=== PATIENT | female | born 1960 | race Caucasian/White ===

== ENCOUNTER 2016-07-23 17:36 | Emergency (ER) | payer BC ==
[2016-07-23 17:43] VITALS: BP 143/93; PULSE 80; RESP 20; TEMP 98.5
--- NOTE | 2016-07-23 17:51 | ED ---
Fall HPI - General Chief Complaint: Fall Stated Complaint: L wrist injury Time Seen by Provider: 07/23/16 17:42 Source: patient, RN notes reviewed Mode of arrival: ambulatory Limitations: no limitations - History of Present Illness Initial Comments: 56-year-old female presents emergency Department with chief complaint of left wrist injury, left knee injury. Patient states that she was walking out of the [place] states that she tripped because of her foot flops and fell forward. She denies any head injury no LOC. Patient has an abrasion to her left knee but states that she has no pain with ambulation. Patient primary complaint of left hand and left forearm pain. Patient states she says no prior fractures. Denies any paresthesias. - Related Data Home Medications Medication Instructions Recorded Confirmed Tiotropium 18 Mcg/Puff [Spiriva] 1 cap INHALATION DAILY 04/26/15 04/27/15 Allergies Allergy/AdvReac Type Severity Reaction Status Date / Time codeine phosphate Allergy Severe Dyspnea-Couldn't Verified 07/23/16 17:41 [From Tylenol-Codeine #3] move-had to call 911 Sulfbraydon (Sulfonamide Allergy Severe pt states Verified 07/23/16 17:41 Antibiotics) felt like she was "on fire" Review of Systems ROS Statement: Those systems with pertinent positive or pertinent negative responses have been documented in the HPI. ROS Other: All systems not noted in ROS Statement are negative. Past Medical History Past Medical History: Cancer, Liver Disease Additional Past Medical History / Comment(s): HX HEP C-HAD [place]-no current problems, HX HEART MURMUR-NO [place], hx. anal cancer-finished chemo & radiation 2014, recently dx. w/mono.-states Dr is aware History of Any Multi-Drug Resistant Organisms: None Reported Past Surgical History: Cholecystectomy, Tubal Ligation Additional Past Surgical History / Comment(s): anal biopsy Past Anesthesia/Blood Transfusion Reactions: No Reported Reaction Past Psychological History: No Psychological Hx Reported Smoking Status: Current every day smoker Past Alcohol Use History: None Reported Additional Past Alcohol Use History / Comment(s): SMOKER SINCE AGE 14( 1973) SMOKES ABOUT 3/4 PPD Past Drug Use History: None Reported - Past Family History Mother Family Medical History: Dementia Additional Family Medical History / Comment(s): ALZHEIMER'S, SCARLET FEVER, VITAMIN B-12 DEFICIENCY Sister(s) Family Medical History: Rheumatoid Arthritis (RA), Thyroid Disorder Additional Family Medical History / Comment(s): YOUNGEST SISTER RA & OLDEST SISTER JONATHAN'S General Exam Limitations: no limitations General appearance: alert, in no apparent distress Neck exam: Present: normal inspection. Absent: tenderness, meningismus, lymphadenopathy Respiratory exam: Present: normal lung sounds bilaterally. Absent: respiratory distress, wheezes, rales, rhonchi, stridor Cardiovascular Exam: Present: regular rate, normal rhythm, normal heart sounds. Absent: systolic murmur, diastolic murmur, rubs, gallop, clicks Extremities exam: Present: other (Left wrist full range of motion minimally tender, left hand there is moderate tenderness over the mid hand with mild swelling patient is full range of motion of all digits patient has pain in her forearm with range of motion of her wrist pronation supination. Left knee there is a large abrasion 4 cm x 4 cm patient's full range of motion nontender knee.) Neurological exam: Present: alert, oriented X3, CN II-XII intact, reflexes normal. Absent: motor sensory deficit Course Vital Signs 07/23/16 17:38 Temperature 98.5 F Pulse Rate 80 Respiratory 20 Rate Blood Pressure 143/93 O2 Sat by Pulse 99 Oximetry Medical Decision Making - Medical Decision Making 56 year female presented for fall. Patient has an abrasion to her left knee. She does not want a tetanus update she refuses. Patient's x-ray of her left wrist does not show an acute fracture. Patient will be discharged at this time return parameters were discussed. Disposition Clinical Impression: Fall, Abrasion of left knee, Left wrist sprain, Sprain of left hand Disposition: HOME SELF-CARE Condition: Stable Instructions: Wrist Sprain (ED) Additional Instructions: Please return to the Emergency Department if symptoms worsen or any other concerns. Referrals: Jimi Dawson MD [Primary Care Provider] - 1-2 days Time of Disposition: 18:11
--- NOTE | 2016-07-23 18:48 | XR ---
EXAMINATION TYPE: XR forearm LT DATE OF EXAM: 07/23/2016 COMPARISON: NONE HISTORY: Pain TECHNIQUE: 2 views FINDINGS: I see no fracture nor dislocation. Joint spaces are normal. IMPRESSION: Negative left forearm exam.
--- NOTE | 2016-07-23 18:49 | XR ---
EXAMINATION TYPE: XR wrist complete LT DATE OF EXAM: 07/23/2016 COMPARISON: NONE HISTORY: Pain TECHNIQUE: 4 views FINDINGS: I see no fracture nor dislocation. Carpal bones are intact. Joint spaces appear normal. IMPRESSION: Negative left wrist exam.
== END 2016-07-23 18:21 | disposition home or self-care (01) ==
LOC: EC 17:36
DX: S63.92XA Sprain of unspecified part of left wrist and hand, initial encounter (principal); S80.212A Abrasion, left knee, initial encounter; F17.200 Nicotine dependence, unspecified, uncomplicated; Z85.048 Personal history of other malignant neoplasm of rectum, rectosigmoid junction, and anus; W01.0XXA Fall on same level from slipping, tripping and stumbling without subsequent striking against object, initial encounter; Y92.481 Parking lot as the place of occurrence of the external cause; Y93.01 Activity, walking, marching and hiking
CPT/HCPCS: 99283

== ENCOUNTER → 2017-10-02 | Outpatient (CLI) | payer BC ==
--- NOTE | 2017-10-03 09:01 | US ---
EXAMINATION TYPE: US groin LT DATE OF EXAM: 10/02/2017 COMPARISON: NONE CLINICAL HISTORY: R10.2 Inguinal pain. Fullness left groin. Patient is post chemotherapy and radiatio n therapy for Anal CA 2 years ago. Patent left FILLER WIPER and CFV is noted by color flow. Multiple lymph nodes are seen mid groin at patient's area of pain with largest size = 1.5 x 1.3 x 0.4cm. IMPRESSION: Multiple lymph nodes noted within the region of the left groin none of which appear to be pathologic at this time. Correlate clinically.
== END | disposition home or self-care (01) ==
LOC: RADUSWWP 16:46
PROVIDERS: ATTEND Family Medicine
DX: R10.2 Pelvic and perineal pain (principal)

== ENCOUNTER → 2017-10-29 | Outpatient (CLI) | payer BC ==
--- NOTE | 2017-10-29 16:10 | US ---
EXAMINATION TYPE: US groin LT DATE OF EXAM: 10/29/2017 COMPARISON: Left groin ultrasound October 02, 2017 CLINICAL HISTORY: R10.2 Pelvic and perineal pain. Pt states left groin pain Multiple, normal appearing lymph nodes within left groin, largest AP measurement= 5mm Prominent but benign-appearing lymph nodes in left groin are redemonstrated measuring subcentimeter o n short axis. No significant change from prior. IMPRESSION: As above.
== END | disposition home or self-care (01) ==
LOC: RADUSWWP 15:24
PROVIDERS: ATTEND Family Medicine
DX: R10.2 Pelvic and perineal pain (principal)

== ENCOUNTER → 2021-03-26 | Outpatient (CLI) | payer BC ==
--- NOTE | 2021-03-26 11:28 | US ---
EXAMINATION TYPE: US abdomen complete DATE OF EXAM: 03/26/2021 COMPARISON: None CLINICAL HISTORY: 61-year-old female R10.11 RIGHT UPPER QUADRANT PAIN. RUQ pain x 2 weeks TECHNIQUE: Multiple sonographic images of the abdomen are obtained. FINDINGS: EXAM MEASUREMENTS: Liver Length: 15.8 cm CBD: 0.4 cm Spleen: 11.2 cm Right Kidney: 9.3 x 4.2 x 5.7 cm Left Kidney: 9.8 x 4.6 x 3.8 cm Pancreas: Most of the pancreas is visualized and shows no gross abnormality. Liver: Very heterogeneous parenchyma. Some of images suggest a slightly nodular hepatic contour. No d iscrete focal liver lesion identified. surgically absentgically absent Evidence for sonographic Munohy's sivisualized portions wnl, limited by overlying bowel gasying bow el wnl Spleen: wnl Rwnlt Kidney: wnl wnlt Kidney: wnl wnlpper IVC: wnl wnlbd rta: wnl MPRESSION: 1. Very heterogeneous liver parenchyma. Possible underlying cirrhosis or other nonspecific hepatocell ular disease. Further evaluation as clinically indicated. 2. Status post cholecystectomy. No biliary ductal dilatation.
== END | disposition home or self-care (01) ==
LOC: RADUSWWP 10:05
PROVIDERS: ATTEND Family Medicine
DX: R93.2 Abnormal findings on diagnostic imaging of liver and biliary tract (principal); Z90.49 Acquired absence of other specified parts of digestive tract
CPT/HCPCS: 76700

== ENCOUNTER 2021-04-19 15:15 | Inpatient (IN) | payer BC ==
[2021-04-19 16:34] LABS: Anisocytosis Slight; Basophils # (A) 0.1 k/uL (0-0.2); Basophils % (A) 1 %; Eosinophils # (A) 0.2 k/uL (0-0.7); Eosinophils % (A) 2 %; HCT 50.9 % (34.0-46.0); HGB 15.9 gm/dL (11.4-16.0); Hypochromasia Moderate; Lymphocytes # (A) 0.9 k/uL (1.0-4.8); Lymphocytes % (A) 10 %; MCH 29.4 pg (25.0-35.0); MCHC 31.3 g/dL (31.0-37.0); MCV 93.9 fL (80.0-100.0); Mean Platelet Volume 8.5; Monocytes # (A) 0.6 k/uL (0-1.0); Monocytes % (A) 6 %; Neutrophils % (A) 79 %; Platelet Count 338 k/uL (150-450); RBC 5.41 m/uL (3.80-5.40); RDW 16.3 % (11.5-15.5); WBC 8.9 k/uL (3.8-10.6)
--- NOTE | 2021-04-19 16:40 | ED ---
Abdominal Pain HPI - General Chief Complaint: Abdominal Pain Stated Complaint: Abdominal Pain Time Seen by Provider: 04/19/21 15:42 Source: patient, RN notes reviewed Mode of arrival: ambulatory Limitations: no limitations - History of Present Illness Initial Comments: This is a 61-year-old female with a past medical history of liver cirrhosis who presents to the emergency department with abdominal pain and swelling x1.5 weeks. Denies any known history of ascites. She is unsure if she has gained weight, but states that she is unable to get comfortable, her abdomen is very tender, and she experiences bloating anytime she eats. Also notes that her symptoms are getting worse and she feels like her stomach "will explode". She also notes that her mouth is very dry, and she has difficulty sipping water due to the bloating and increased abdominal pain. Denies any nausea or vomiting. She also notes that she has overall been very fatigued and seems to have a lower urine output. Denies any fevers or chills, sick contacts, changes in bowel habits, or URI symptoms. MD Complaint: abdominal pain Location: diffuse Radiation: none Migration to: no migration Consistency: constant - Related Data Home Medications Medication Instructions Recorded Confirmed Acetaminophen Tab [Tylenol Tab] 1,000 mg PO Q6HR PRN 04/19/21 04/19/21 Allergies Allergy/AdvReac Type Severity Reaction Status Date / Time codeine phosphate Allergy Severe Dyspnea-Couldn't Verified 04/19/21 16:06 [From Tylenol-Codeine #3] move-had to call 911 Sulfa (Sulfonamide Allergy Severe pt states Verified 04/19/21 16:06 Antibiotics) felt like she was "on fire" Review of Systems ROS Statement: Those systems with pertinent positive or pertinent negative responses have been documented in the HPI. ROS Other: All systems not noted in ROS Statement are negative. Constitutional: Denies: fever, chills ENT: Denies: ear pain, throat pain Respiratory: Denies: cough, dyspnea Cardiovascular: Denies: chest pain, palpitations Endocrine: Reports: fatigue Gastrointestinal: Reports: abdominal pain. Denies: nausea, vomiting, diarrhea Genitourinary: Denies: urgency, dysuria Musculoskeletal: Denies: back pain Skin: Denies: rash, lesions Neurological: Denies: headache Past Medical History Past Medical History: Cancer, Liver Disease Additional Past Medical History / Comment(s): HX HEP C-HAD [place]-no current problems, HX HEART MURMUR-NO [place], hx. anal cancer-finished chemo & radiation 2014, recently dx. w/mono.-states Dr is aware. Cirrhosis of liver History of Any Multi-Drug Resistant Organisms: None Reported Past Surgical History: Cholecystectomy, Tubal Ligation Additional Past Surgical History / Comment(s): anal biopsy Past Anesthesia/Blood Transfusion Reactions: No Reported Reaction Past Psychological History: No Psychological Hx Reported Smoking Status: Former smoker Past Alcohol Use History: None Reported Past Drug Use History: Marijuana - Past Family History Mother Family Medical History: Dementia Additional Family Medical History / Comment(s): ALZHEIMER'S, SCARLET FEVER, VITAMIN B-12 DEFICIENCY Sister(s) Family Medical History: Rheumatoid Arthritis (RA), Thyroid Disorder Additional Family Medical History / Comment(s): YOUNGEST SISTER RA & OLDEST SISTER JONATHAN'S General Exam Limitations: no limitations General appearance: alert, in distress Head exam: Present: atraumatic, normocephalic, normal inspection Eye exam: Present: scleral icterus Respiratory exam: Present: normal lung sounds bilaterally. Absent: respiratory distress, wheezes, rales, rhonchi, stridor Cardiovascular Exam: Present: regular rate, normal rhythm, normal heart sounds. Absent: systolic murmur, diastolic murmur, rubs, gallop, clicks GI/Abdominal exam: Present: distended, tenderness, other (shifting dullness and mild fluid wave). Absent: guarding, rebound Back exam: Present: normal inspection, full ROM. Absent: tenderness, CVA tenderness (R), CVA tenderness (L) Neurological exam: Present: alert, oriented X3, CN II-XII intact Psychiatric exam: Present: normal affect, normal mood Skin exam: Present: warm, dry, intact. Absent: rash Course Vital Signs 04/19/21 04/19/21 15:27 18:42 Temperature 97.6 F 98.5 F Pulse Rate 80 80 Respiratory 20 16 Rate Blood Pressure 154/86 148/66 O2 Sat by Pulse 95 97 Oximetry Medical Decision Making - Medical Decision Making This is a 61-year-old female with a past medical history of cirrhosis who presents to the emergency department for increased abdominal pain and swelling. Given the history of cirrhosis, a CT of the abdomen and pelvis was obtained to evaluate for possible ascites. Computed tomography scan revealed mild free fluid in the abdomen, however, computed tomography scans are not incredibly sensitive for ascites, and thus the extent of this may not be accurately presented in the computed tomography scan. Given the shifting dullness and mild positive fluid sign, there is high suspicion for ascites. Not suspicious for hemorrhagic ascites, as the patient has had no trauma. Spontaneous bacterial peritonitis also unlikely, given that the patient is afebrile and does not have an elevated white count. I believe that the patient would benefit from a therapeutic paracentesis. However, given that GI is not here this week and tomorrow is Friday, it is unlikely that will happen. The patient will be admitted for observation and symptomatic management. This case was discussed in detail with the attending ED physician. Presentation, findings, and treatment plan discussed in detail as well. - Lab Data Result diagrams: 04/19/21 16:27 04/19/21 16:27 Lab Results 04/19/21 04/19/21 Range/Units 16:27 16:27 WBC 8.9 (3.8-10.6) k/uL RBC 5.41 H (3.80-5.40) m/uL Hgb 15.9 (11.4-16.0) gm/dL Hct 50.9 H (34.0-46.0) % MCV 93.9 (80.0-100.0) fL MCH 29.4 (25.0-35.0) pg MCHC 31.3 (31.0-37.0) g/dL RDW 16.3 H (11.5-15.5) % Plt Count 338 (150-450) k/uL MPV 8.5 Neutrophils % 79 % Lymphocytes % 10 % Monocytes % 6 % Eosinophils % 2 % Basophils % 1 % Neutrophils # 7.0 (1.3-7.7) k/uL Lymphocytes # 0.9 L (1.0-4.8) k/uL Monocytes # 0.6 (0-1.0) k/uL Eosinophils # 0.2 (0-0.7) k/uL Basophils # 0.1 (0-0.2) k/uL Hypochromasia Moderate Anisocytosis Slight Sodium 134 L (137-145) mmol/L Potassium 4.8 (3.5-5.1) mmol/L Chloride 100 (98-107) mmol/L Carbon Dioxide 28 (22-30) mmol/L Anion Gap 6 mmol/L BUN 14 (7-17) mg/dL Creatinine 0.64 (0.52-1.04) mg/dL Est GFR (CKD-EPI)AfAm >90 (>60 ml/min/1.73 sqM) Est GFR (CKD-EPI)NonAf >90 (>60 ml/min/1.73 sqM) Glucose 92 (74-99) mg/dL Calcium 8.9 (8.4-10.2) mg/dL Total Bilirubin 2.4 H (0.2-1.3) mg/dL Conjugated Bilirubin 0.0 (0.0-0.3) mg/dL Unconjugated Bilirubin 1.1 (0.0-1.1) mg/dL Delta Bilirubin 1.3 H (0.0-0.2) mg/dL AST 318 H (14-36) U/L ALT 70 H (4-34) U/L Alkaline Phosphatase 397 H (38-126) U/L Total Protein 7.4 (6.3-8.2) g/dL Albumin 3.6 (3.5-5.0) g/dL - Radiology Data Radiology results: report reviewed, image reviewed Disposition Clinical Impression: Ascites of liver Disposition: ADMITTED IP TO THIS HOSP
[2021-04-19 16:42] LABS: ALT 70 U/L (4-34); AST 318 U/L (14-36); African American GFR (CKD) >90 (>60 ml/min/1.73 sqM); Albumin 3.6 g/dL (3.5-5.0); Alkaline Phosphatase 397 U/L (38-126); Anion Gap 6 mmol/L; Bilirubin, Delta 1.3 mg/dL (0.0-0.2); Bilirubin,Unconjugated 1.1 mg/dL (0.0-1.1); Blood Urea Nitrogen 14 mg/dL (7-17); Calcium 8.9 mg/dL (8.4-10.2); Carbon Dioxide 28 mmol/L (22-30); Chloride 100 mmol/L (98-107); Glucose 92 mg/dL (74-99); Non-African American GFR(CKD) >90 (>60 ml/min/1.73 sqM); Potassium 4.8 mmol/L (3.5-5.1); Sodium 134 mmol/L (137-145); Total Bilirubin 2.4 mg/dL (0.2-1.3); Total Protein 7.4 g/dL (6.3-8.2)
--- NOTE | 2021-04-19 16:51 | CT ---
EXAMINATION TYPE: CT abdomen pelvis wo con DATE OF EXAM: 04/19/2021 COMPARISON: Ultrasound 03/26/2021. CT 04/04/2015 and prior. HISTORY: Liver cirrhosis, possible ascites CT DLP: 640.8 mGycm Automated exposure control for dose reduction was used. TECHNIQUE: Helical acquisition of images was performed from the lung bases through the pelvis. FINDINGS: LUNG BASES: Subtle minimal patchy bibasilar opacities. Also few small 2 to 3 mm left hepatic lobe nod ules. LIVER/GB: Diffusely heterogeneous, enlarged liver with scattered multiple low-attenuation hepatic foc i measuring up to 8 mm. Hepatic micronodular contour seen. Cholecystectomy and small perihepatic flui d noted. Nonspecific mild fat stranding along the right paracolic gutter. PANCREAS: No significant abnormality is seen. SPLEEN: No significant abnormality is seen. ADRENALS: No significant abnormality is seen. KIDNEYS: No significant abnormality is seen. FREE AIR: No free air is visualized RETROPERITONEAL ADENOPATHY: None visualized REPRODUCTIVE ORGANS: No significant abnormality is seen URINARY BLADDER: No significant abnormality is seen. PELVIC ADENOPATHY: None visualized. OSSEOUS STRUCTURES: No bowel obstruction. BOWEL: No significant abnormality is seen. OTHER: Calcified uterine fibroid seen. Also small pelvic free fluid. IMPRESSION: HEPATOMEGALY WITH DIFFUSE HETEROGENEITY, MICRONODULAR CONTOUR AND MULTIPLE LOW ATTENUATING HEPATIC FO CI. FINDINGS ARE CONSISTENT WITH CHRONIC LIVER DISEASE WITH INDETERMINATE HEPATIC LESIONS. ALSO INDETERMINATE FEW SMALL LEFT LOWER LOBE NODULES, NOT SEEN ON PRIOR 2016 CT STUDY. ATTENTION ON F OLLOW-UP. ADDITIONAL MINIMAL BIBASILAR PATCHY OPACITIES. CORRELATE FOR POSSIBLE DEVELOPING INFILTRATES. SMALL ABDOMINAL/PELVIC FREE FLUID. ASSOCIATED MILD INFLAMMATORY CHANGES ABOUT THE RIGHT PARACOLIC GUT TER, NONSPECIFIC. NO BOWEL OBSTRUCTION.
[2021-04-19] MEDS ORDERED: NALOXONE 0.4 MG/ML 1 ML VIAL IV PRN (18:06)
[2021-04-19] MEDS ORDERED: ALPRAZolam 0.25 MG TAB PO PRN (18:18)
[2021-04-19] MEDS ORDERED: ACETAMINOPHEN TAB 325 MG TAB PO PRN (18:18)
[2021-04-19] MEDS ORDERED: ONDANSETRON 4 MG/2 ML VIAL IVP PRN (18:44)
[2021-04-19] MEDS: IBUPROFEN 600 MG TAB PO PRN (20:16)
[2021-04-19] MEDS ORDERED: IBUPROFEN 600 MG TAB PO SCH (22:00)
--- NOTE | 2021-04-20 03:17 | P.HPIM ---
History of Present Illness H&P Date: 04/19/21 Chief Complaint: Abdominal distention 61-year-old female with liver cirrhosis Patient comes in due to progressive bloating and swelling of her abdomen over the past couple weeks she also reports decreased by mouth intake she has history of hepatitis C however she was treated Patient denies any nausea vomiting denies any coughing chest pain or trouble breathing denies any GI bleeding Reports that her stools alternating between loose and solids. Denies any constipation She reports subjective weight loss of about 10 pounds over the past month. Denies any diagnoses of cancer Patient does have hemorrhoids which occasionally bleeds but otherwise she denies any overt GI bleeding or melena. Patient has history of anal cancer In the ED computed tomography scan of the abdomen showed possible hepatic lesions and chronic liver disease also showed some small left lower lobe nodule. Blood work showed normal CBC Liver enzymes were elevated Review of Systems Pertinent positives as noted in HPI. All other systems were reviewed and are n egative Past Medical History Past Medical History: Cancer, Liver Disease Additional Past Medical History / Comment(s): HX HEP C-HAD [place]-no current problems, HX HEART MURMUR-NO [place], hx. anal cancer-finished chemo & radiation 2014, recently dx. w/mono.-states Dr is aware. Cirrhosis of liver History of Any Multi-Drug Resistant Organisms: None Reported Past Surgical History: Cholecystectomy, Tubal Ligation Additional Past Surgical History / Comment(s): anal biopsy Past Anesthesia/Blood Transfusion Reactions: No Reported Reaction Past Psychological History: No Psychological Hx Reported Smoking Status: Former smoker Past Alcohol Use History: None Reported Past Drug Use History: Marijuana - Past Family History Mother Family Medical History: Dementia Additional Family Medical History / Comment(s): ALZHEIMER'S, SCARLET FEVER, VITAMIN B-12 DEFICIENCY Sister(s) Family Medical History: Rheumatoid Arthritis (RA), Thyroid Disorder Additional Family Medical History / Comment(s): YOUNGEST SISTER RA & OLDEST SISTER JONATHAN'S Medications and Allergies Home Medications Medication Instructions Recorded Confirmed Type Acetaminophen Tab [Tylenol Tab] 1,000 mg PO Q6HR PRN 04/19/21 04/19/21 History Allergies Allergy/AdvReac Type Severity Reaction Status Date / Time codeine phosphate Allergy Severe Dyspnea-Couldn't Verified 04/19/21 16:06 [From Tylenol-Codeine #3] move-had to call 911 Sulfa (Sulfonamide Allergy Severe pt states Verified 04/19/21 16:06 Antibiotics) felt like she was "on fire" Physical Exam Vitals: Vital Signs Temp Pulse Pulse Resp BP BP Pulse Ox 04/19/21 21:50 98.3 F 73 17 149/83 95 04/19/21 18:42 98.5 F 80 16 148/66 97 04/19/21 15:27 97.6 F 80 20 154/86 95 Intake and Output 04/19/21 04/19/21 04/20/21 14:59 22:59 06:59 Other: Weight 77.564 kg Constitutional: No acute distress, conversant, pleasant Eyes: scleral jaundice, moist conjunctiva, Pupils equal round reactive to light ENMT: NC/AT Oropharynx clear, no erythema, or exudates Neck: Supple, FROM, no masses, or JVD No carotid bruits No thyromegaly Lungs: Clear to auscultation Clear to percussion Normal respiratory effort, no accessory muscle use Cardiovascular: Heart regular in rate and rhythm, No murmurs, gallops, or rubs No peripheral edema Abdominal: moderate distention , Nontender, no guarding, rebound or rigidity Abdomen moving with respiration Normoactive bowel sounds hepatomegaly No palpable mass No abdominal wall hernia noted Skin: Normal temperature, tone, texture, turgor No induration No subcutaneous nodules No rash, lesions No ulcers Extremities: No digital cyanosis No clubbing Pedal pulses intact and symmetrical Radial pulses intact and symmetrical No calf tenderness Psychiatric: Alert and oriented to person, place and time Appropriate affect fair judgement Neuro Muscles Strength 5/5 in all 4 extremities Sensation to light touch grossly present throughout Cranial nerves II-XII grossly intact No focal sensory deficits Lymphatics: no palpable cervical or supraclavicular , or inguinal lymph nodes Results CBC & Chem 7: 04/19/21 16:27 04/19/21 16:27 Labs: Abnormal Lab Results - Last 24 Hours (Table) 04/19/21 04/19/21 Range/Units 16:27 16:27 RBC 5.41 H (3.80-5.40) m/uL Hct 50.9 H (34.0-46.0) % RDW 16.3 H (11.5-15.5) % Lymphocytes # 0.9 L (1.0-4.8) k/uL Sodium 134 L (137-145) mmol/L Total Bilirubin 2.4 H (0.2-1.3) mg/dL Delta Bilirubin 1.3 H (0.0-0.2) mg/dL AST 318 H (14-36) U/L ALT 70 H (4-34) U/L Alkaline Phosphatase 397 H (38-126) U/L Thrombosis Risk Factor Assmnt - Choose All That Apply Each Factor Represents 1 point: Obesity (BMI >25) Other Risk Factors: No Other congenital or acquired thrombophilia - If yes, enter type in comment: No Thrombosis Risk Factor Assessment Total Risk Factor Score: 1 Thrombosis Risk Factor Assessment Level: Low Risk Assessment and Plan Assessment: liver cirhosis ascites h/o hep C, s/p treatment elevated liver enzymes plan check hepatitis panel check alpha feto protein , rule out hepatocellular cancer with history of hep c radiology consult for paracentesis , send fluid for studies pain control PPI heparin sc tid for dvt ppx full code h/o anal cancer 2013 Cscope before that was negative anticipated length of stay < 2 midnights
[2021-04-20 04:45] LABS: INR 1.1 (<1.2); Prothrombin Time 12.1 sec (9.0-12.0)
[2021-04-20] MEDS: PANTOPRAZOLE 40 MG TABLET PO SCH (06:55)
[2021-04-20] MEDS: IBUPROFEN 600 MG TAB PO PRN ×2 (06:56→16:09)
[2021-04-20] MEDS: HEPARIN SODIUM,PORCINE/PF 5,000 UNIT/0.5 ML SYRINGE SQ SCH ×3 (06:57→23:32)
[2021-04-20 09:33] LABS: Basophils # (A) 0.11 X 10*3/uL (0.00-0.10); Basophils % (A) 1.4 %; Eosinophils # (A) 0.27 X 10*3/uL (0.04-0.35); Eosinophils % (A) 3.3 %; HCT 47.6 % (37.2-46.3); HGB 14.9 g/dL (12.0-15.0); Immature Grans, Automated 0.4 %; Lymphocytes # (A) 1.06 X 10*3/uL (0.90-5.00); Lymphocytes % (A) 13.1 %; MCH 27.3 pg (27.0-32.0); MCHC 31.3 g/dL (32.0-37.0); MCV 87.2 fL (80.0-97.0); Mean Platelet Volume 11.3 fL (9.5-12.2); Monocytes # (A) 0.84 X 10*3/uL (0.20-1.00); Monocytes % (A) 10.4 %; NRBC Per 100 WBC 0 /100 WBCS (0.0-0.0); Neutrophils # (A) 5.76 X 10*3/uL (1.80-7.70); Neutrophils % (A) 71.4 %; Platelet Count 312 X 10*3/uL (140-440); RBC 5.46 X 10*6/uL (4.10-5.20); RDW 18.6 % (11.5-14.5); WBC 8.07 X 10*3/uL (4.50-10.00)
[2021-04-20 10:07] LABS: Hepatitis A Antibody IgM Nonreactive (Nonreactive); Hepatitis B Core IgM Nonreactive (Nonreactive); Hepatitis B Surface Antigen Nonreactive (Nonreactive); Hepatitis C IgG Antibody Reactive (Nonreactive)
[2021-04-20 10:30] LABS: Alpha Fetoprotein, Tumor Mkr >60500.00 ng/mL (0.00-7.90)
--- NOTE | 2021-04-20 11:11 | US ---
Discontinued paracentesis HISTORY: Ascites Real-time ultrasound was performed. Only minimal pocket of fluid was identified. Following discussion with the patient about risks and benefits, patient has deferred paracentesis at this time. IMPRESSION: Discontinued paracentesis.
[2021-04-20 12:09] LABS: Albumin 3.3 g/dL (3.8-4.9); Albumin/Globulin Ratio 1.14 (1.60-3.17); BUN/Creat Ratio 19.67 Ratio (12.00-20.00); Blood Urea Nitrogen 11.8 mg/dL (9.0-27.0); Calcium 9.1 mg/dL (8.7-10.3); Globulin 2.9 g/dL (1.6-3.3); Non-African American GFR(CKD) 98.4 (60.0-200.0); Potassium 4.5 mmol/L (3.5-5.5); Total Bilirubin 1.7 mg/dL (0.30-1.20); Total Protein 6.2 g/dL (6.2-8.2)
--- NOTE | 2021-04-20 15:29 | P.PN ---
Subjective Patient was examined at bedside today she denies any abdominal discomfort, shortness of breath or palpitations. She does explain an extensive history regarding her hepatitis C treatment that's currently been fully treated and no detectable virus was found as per patient and present at bedside by her PCP. She came in with some abdominal distention she did go to interventional radiology did not see significant ascites for drainage however they didn't want to take a small sample however the patient refused for any fluid analysis at thi s time. Impaired judgment obtain records from her primary care doctor regarding her LFTs prior to the hospitalization. Objective - Vital Signs Vital signs: Vital Signs Temp 97.8 F 04/20/21 14:08 Pulse 75 04/20/21 14:08 Resp 14 04/20/21 14:08 BP 150/87 04/20/21 14:08 Pulse Ox 97 04/20/21 14:08 Intake & Output 04/19/21 04/20/21 04/20/21 18:59 06:59 18:59 Weight 77.564 kg 77.564 kg - Exam Gen. patient is awake alert oriented 3. Cardiovascular normal S1/S2 heard Respiratory no wheezing or rhonchi heard Abdomen slightly distended however soft, nontender Extremities no pitting edema noted Psych normal affect - Labs CBC & Chem 7: 04/20/21 03:58 04/20/21 03:58 Labs: Abnormal Lab Results - Last 24 Hours (Table) 04/19/21 04/19/21 04/20/21 Range/Units 16:27 16:27 03:58 RBC 5.41 H 5.46 H (3.80-5.40) m/uL Hct 50.9 H 47.6 H (34.0-46.0) % MCHC 31.3 L (32.0-37.0) g/dL RDW 16.3 H 18.6 H (11.5-15.5) % Lymphocytes # 0.9 L (1.0-4.8) k/uL Basophils # 0.11 H (0.00-0.10) X 10*3/uL PT (9.0-12.0) sec Sodium 134 L (137-145) mmol/L Carbon Dioxide (20.0-27.5) mmol/L Total Bilirubin 2.4 H (0.2-1.3) mg/dL Delta Bilirubin 1.3 H (0.0-0.2) mg/dL AST 318 H (14-36) U/L ALT 70 H (4-34) U/L Alkaline Phosphatase 397 H (38-126) U/L Albumin (3.8-4.9) g/dL Albumin/Globulin Ratio (1.60-3.17) g/dL Tumor Marker AFP (0.00-7.90) ng/mL Hep C IgG Ab (Nonreactive) 04/20/21 04/20/21 04/20/21 Range/Units 03:58 03:58 03:58 RBC (3.80-5.40) m/uL Hct (34.0-46.0) % MCHC (32.0-37.0) g/dL RDW (11.5-15.5) % Lymphocytes # (1.0-4.8) k/uL Basophils # (0.00-0.10) X 10*3/uL PT 12.1 H (9.0-12.0) sec Sodium (137-145) mmol/L Carbon Dioxide 19.0 L (20.0-27.5) mmol/L Total Bilirubin 1.70 H (0.2-1.3) mg/dL Delta Bilirubin (0.0-0.2) mg/dL AST 329 H (14-36) U/L ALT 71 H (4-34) U/L Alkaline Phosphatase 400 H (38-126) U/L Albumin 3.3 L (3.8-4.9) g/dL Albumin/Globulin Ratio 1.14 L (1.60-3.17) g/dL Tumor Marker AFP >97574.00 H (0.00-7.90) ng/mL Hep C IgG Ab Reactive A (Nonreactive) Assessment and Plan Assessment: Assessment #1 liver cirrhosis secondary to possible hepatitis C #2 status post hepatitis C treatment #3 ascites secondary to above Plan: -Admit to medicine for close monitoring -Aspiration/fall precaution -Recommend paracentesis fluid analysis to evaluate etiology for hypertension versus other causes -Patient refused paracentesis at this time -I would like to obtain medical records from her primary care doctor -Patient does have a follow-up appointment with GI later this month. -DVT prophylaxis SCDs heparin 3 times a day
[2021-04-21] MEDS: HEPARIN SODIUM,PORCINE/PF 5,000 UNIT/0.5 ML SYRINGE SQ SCH ×2 (07:09→15:11)
[2021-04-21] MEDS: PANTOPRAZOLE 40 MG TABLET PO SCH (07:09)
[2021-04-21 08:26] VITALS: BMI 26.7
[2021-04-21 08:40] LABS: HGB 15.2 g/dL (12.0-15.0); MCH 27.8 pg (27.0-32.0); MCHC 32.3 g/dL (32.0-37.0); MCV 85.9 fL (80.0-97.0); Mean Platelet Volume 11.3 fL (9.5-12.2); NRBC Per 100 WBC 0 /100 WBCS (0.0-0.0); Platelet Count 339 X 10*3/uL (140-440); RBC 5.47 X 10*6/uL (4.10-5.20); RDW 18.5 % (11.5-14.5); WBC 8.02 X 10*3/uL (4.50-10.00)
[2021-04-21 08:57] LABS: African American GFR (CKD) 108.4 (60.0-200.0); Albumin 3.4 g/dL (3.8-4.9); Albumin/Globulin Ratio 1.17 (1.60-3.17); Anion Gap 15.7 mmol/L (10.00-18.00); BUN/Creat Ratio 16.29 Ratio (12.00-20.00); Blood Urea Nitrogen 11.4 mg/dL (9.0-27.0); Carbon Dioxide 21.3 mmol/L (20.0-27.5); Globulin 2.9 g/dL (1.6-3.3); Non-African American GFR(CKD) 93.5 (60.0-200.0); Potassium 4.7 mmol/L (3.5-5.5); Total Bilirubin 1.6 mg/dL (0.30-1.20); Total Protein 6.3 g/dL (6.2-8.2)
[2021-04-21] MEDS: IBUPROFEN 600 MG TAB PO PRN ×2 (11:07→19:56)
--- NOTE | 2021-04-21 13:55 | P.PN ---
Subjective Patient was examined at bedside today continues complaining of some abdominal discomfort and headache. provided prior medical records regarding her blood work which was completed in March 2021. Objective - Vital Signs Vital signs: Vital Signs Temp 98.5 F 04/21/21 07:00 Pulse 73 04/21/21 07:00 Resp 18 04/21/21 07:00 BP 137/81 04/21/21 07:00 Pulse Ox 93 L 04/21/21 07:00 Intake & Output 04/20/21 04/21/21 04/21/21 18:59 06:59 18:59 Weight 77.564 kg Other: Voiding Method Toilet # Voids 2 3 - Exam Gen. patient is awake alert oriented 3. Cardiovascular normal S1/S2 heard Respiratory no wheezing or rhonchi heard Abdomen slightly distended however soft, nontender Extremities no pitting edema noted Psych normal affect - Labs CBC & Chem 7: 04/21/21 04:35 04/21/21 04:35 Labs: Abnormal Lab Results - Last 24 Hours (Table) 04/21/21 04/21/21 Range/Units 04:35 04:35 RBC 5.47 H (4.10-5.20) X 10*6/uL Hgb 15.2 H (12.0-15.0) g/dL Hct 47.0 H (37.2-46.3) % RDW 18.5 H (11.5-14.5) % Total Bilirubin 1.60 H (0.30-1.20) mg/dL AST 366 H (13-35) U/L ALT 76 H (8-44) U/L Alkaline Phosphatase 418 H (41-126) U/L Albumin 3.4 L (3.8-4.9) g/dL Albumin/Globulin Ratio 1.17 L (1.60-3.17) g/dL Assessment and Plan Assessment: Assessment #1 liver cirrhosis secondary to possible hepatitis C #2 status post hepatitis C treatment #3 ascites secondary to above Plan: -Admit to medicine for close monitoring -Aspiration/fall precaution -Recommend paracentesis fluid analysis to evaluate etiology for portal hypertension versus other causes -I personally reviewed her CMP and LFTs which were completed. 2021 which were completely different compared to now. AST was 184 and AOT 39. -Patient refused paracentesis for analysis -I would like to obtain medical records from her primary care doctor-inside the chart and reviewed -I did review the computed tomography scan answer indeterminant multiple nodules will recommend further evaluation if necessary we'll coordinate with hem/onc -Patient does have a follow-up appointment with GI later this month. -DVT prophylaxis SCDs heparin 3 times a day
--- NOTE | 2021-04-21 21:38 | CONS ---
CONSULTATION DATE OF SERVICE: April 21, 2021. REASON FOR CONSULTATION: Liver lesion. HISTORY OF PRESENT ILLNESS: Renee is a very pleasant 61 years old lady who also presented to the emergency department with progressive bloating and swelling of her abdomen over the last couple of weeks. This started after she took antibiotics for a tooth infection. During her hospital stay, she underwent CT scan of the abdomen and pelvis which reveals indeterminate lesion in her liver and so we were asked to see the patient for further evaluation and recommendation. The patient stated that she has been having alternating loose and solid stool. She thought she lost about 10 or 12 pounds over the last month. She denies any fever, chills, nausea, or vomiting. The patient has a history of hepatitis C, was treated in the past and also has a history of liver cirrhosis. 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 She was treated with combined chemoradiation therapy which was completed on March 09, 2015. She did have a repeat anoscope and biopsy in on April 27, 2015, which was negative for residual malignant. However, she has not had any followup since then. OTHER PAST MEDICAL HISTORY: As stated above she has a history of squamous cell carcinoma of the anal canal. History of hepatitis C treated in the past prior to her diagnosis with anal canal carcinoma at [facility] with interferon and she has a liver cirrhosis. FAMILY HISTORY: Positive for dementia and rheumatoid arthritis and thyroid disorder. Also, her maternal grandmother had cancer of the cervix. Her paternal grandfather had some sort of cancer. She is not exactly sure and her second sister has a history of anemia. ALLERGIES: SHE IS ALLERGIC TO CODEINE AND SULFA. HOME MEDICATION: Include Tylenol as needed. REVIEW OF SYSTEMS: As stated above in the history of present illness. Otherwise negative. PAST SOCIAL HISTORY: She is a smoker and she stated she used alcohol occasionally. PHYSICAL EXAMINATION: She is alert, oriented x3. She does not appear to be in acute distress. Her vital signs are: Temperature 98.5, afebrile, pulse 73, regular, respiration 18, blood pressure 137/81. HEENT: Normocephalic, atraumatic. There is scleral icterus noted. NECK: Supple. CHEST equal expansion bilaterally. LUNGS: Clear to auscultation. HEART is regular rhythm. ABDOMEN: Soft. She has evidence of ascites and she has evidence of hepatomegaly. EXTREMITIES: Reveal trace edema. LYMPHATICS: No peripherally enlarged cervical or supraclavicular nodes. MUSCULOSKELETAL: Moving all extremities appropriately. No percussion tenderness detected over spine or sternum. LABORATORY DATA: Sodium 139, potassium 4.7, chloride 102, BUN is 11.4, creatinine 0.8, calcium is 9.0, total bilirubin is 1.8, AST is 366, ALT is 76, alkaline phosphatase 418. Ultrasound of the abdomen performed. CT scan of the abdomen and pelvis performed and during this admission revealed hepatomegaly and diffuse heterogenicity with micronodular contour of the liver and multiple low attenuating hepatic foci consistent with chronic liver disease with indeterminate hepatic lesions. Also, there was small nodules in the left lower lobe in her lung. She previously had ultrasound of the abdomen last month which showed very heterogeneous liver parenchyma with possible underlying cirrhosis or underlying cirrhosis. IMPRESSION: 1. Indeterminate lesion on recent CT scan of the abdomen. She did have an ultrasound last months as well, which she showed heterogeneous liver without any obvious masses. Those indeterminate lesion could be related to her liver cirrhosis with nodular regeneration. Underlying malignancy felt less likely. However, in view of her liver cirrhosis, she is at risk of hepatocellular carcinoma and this needs to be ruled out. 2. History of squamous cell carcinoma of the anal canal, treated in 2015 with definitive chemo radiation therapy. The patient, however, has not had any followup since then. 3. Previous history of hepatitis C. treated at [facility] several years ago with interferon. RECOMMENDATION: 1. I discussed the recent CT scan finding with the patient, . 2. Alpha fetoprotein already ordered. 3. To further evaluate the liver, an MRI of the abdomen could be obtained in the outpatient setting. 4. I also highly encouraged her to follow up with us in the outpatient setting in regard to her previous diagnosis of cancer. She has not had any evaluation for recurrence since she completed her treatment and she has not had any colonoscopy as well. The dose could be arranged to be done in the outpatient setting. The above was discussed in detail with the patient and at bedside and I have answered all the questions. MMODL / IJN: [id number] /
[2021-04-21 23:19] LABS: Procalcitonin 0.52 ng/mL (0.02-0.09)
--- NOTE | 2021-04-21 23:53 | P.CONS ---
History of Present Illness - Reason for Consult Consult date: 04/21/21 Hep C positive, elevated liver enzymes Requesting physician: Ryan Dunbar - Chief Complaint Abdominal distention few days - History of Present Illness Patient is a 61-year female with a past medical history difficult for hepatitis C that was diagnosed in 2013 patient was evaluated at [facility] liver unit and the patient mention she was treated with a 1 year course of antiviral for her chronic hepatitis C patient mention subsequently the patient did have blood work done by her primary care physician Dr. Dawson and issues that hepatitis C was gone patient also have a history of anal cancer that was diagnosed in 2015 and has been treated with chemoradiation therapy, patient presenting to the [facility] ER 2 days ago for evaluation of abdominal pain and swelling that apparently has been getting worse for about a week and a half patient did not have any history of ascites prior to that patient be complaining of abdominal distention and discomfort more of a dull aching pain 5- 6 out of 10 no radiation patient has been nauseated but no vomiting and denies having any diarrhea with the symptom the patient was evaluated by the ER physician on arrival to the ER the patient was afebrile and no fever has been recorded subsequently patient did have a normal white count kidney function has been normal liver enzymes are elevated and did have slight worsening patient also have a alpha-fetoprotein which is more than 60,000, the patient hepatitis C serology came back positive infectious disease was consulted because of positive hepatitis C and worsening liver enzymes patient did have a CT abdominal pelvis which shows hepatomegaly with diffuse heterogenicity micronodular with multiple low attenuating hepatic foci consistent with chronic liver disease, patient subsequently did have a ultrasound which shows a minimal pocket of fluid hence paracentesis was not done Review of Systems Positive point has been mentioned in the HPI rest of the systems are negative Past Medical History Past Medical History: Cancer, Liver Disease Additional Past Medical History / Comment(s): HX HEP C-HAD TX-no current problems, HX HEART MURMUR-NO TX, hx. anal cancer-finished chemo & radiation 2014, recently dx. w/mono.-states Dr is aware. Cirrhosis of liver History of Any Multi-Drug Resistant Organisms: None Reported Past Surgical History: Cholecystectomy, Tubal Ligation Additional Past Surgical History / Comment(s): anal biopsy Past Anesthesia/Blood Transfusion Reactions: No Reported Reaction Past Psychological History: No Psychological Hx Reported Smoking Status: Former smoker Past Alcohol Use History: None Reported Past Drug Use History: Marijuana - Past Family History Mother Family Medical History: Dementia Additional Family Medical History / Comment(s): ALZHEIMER'S, SCARLET FEVER, VITAMIN B-12 DEFICIENCY Sister(s) Family Medical History: Rheumatoid Arthritis (RA), Thyroid Disorder Additional Family Medical History / Comment(s): YOUNGEST SISTER RA & OLDEST SISTER JONATHAN'S Medications and Allergies Home Medications Medication Instructions Recorded Confirmed Type Acetaminophen Tab [Tylenol Tab] 1,000 mg PO Q6HR PRN 04/19/21 04/19/21 History Allergies Allergy/AdvReac Type Severity Reaction Status Date / Time codeine phosphate Allergy Severe Dyspnea-Couldn't Verified 04/19/21 16:06 [From Tylenol-Codeine #3] move-had to call 911 Sulfa (Sulfonamide Allergy Severe pt states Verified 04/19/21 16:06 Antibiotics) felt like she was "on fire" Physical Exam Vitals: Vital Signs Temp Pulse Resp BP Pulse Ox 04/21/21 07:00 98.5 F 73 18 137/81 93 L 04/21/21 01:38 97.9 F 68 16 150/81 93 L 04/20/21 19:33 98.1 F 69 149/78 97 Intake and Output 04/20/21 04/21/21 04/21/21 22:59 06:59 14:59 Other: Voiding Method Toilet # Voids 1 3 2 # Bowel Movements 1 Weight 77.564 kg GENERAL DESCRIPTION: Middle-aged female lying in bed, no distress. No tachypnea or accessory muscle of respiration use. HEENT: Shows Pallor , no scleral icterus. Oral mucous membrane is dry. No pharyngeal erythema or thrush NECK: Trachea central, no thyromegaly. LUNGS: Unlabored breathing. Clear to auscultation anteriorly. No wheeze or crackle. HEART: S1, S2, regular rate and rhythm. No loud murmur ABDOMEN: Soft, no tenderness , guarding or rigidity, EXTREMITIES: No edema of feet. SKIN: No rash, no masses palpable. NEUROLOGICAL: The patient is awake, alert, oriented x3, mood and affect normal. Results CBC & Chem 7: 04/21/21 04:35 04/21/21 04:35 Labs: Abnormal Lab Results - Last 24 Hours (Table) 04/21/21 04/21/21 Range/Units 04:35 04:35 RBC 5.47 H (4.10-5.20) X 10*6/uL Hgb 15.2 H (12.0-15.0) g/dL Hct 47.0 H (37.2-46.3) % RDW 18.5 H (11.5-14.5) % Total Bilirubin 1.60 H (0.30-1.20) mg/dL AST 366 H (13-35) U/L ALT 76 H (8-44) U/L Alkaline Phosphatase 418 H (41-126) U/L Albumin 3.4 L (3.8-4.9) g/dL Albumin/Globulin Ratio 1.17 L (1.60-3.17) g/dL Assessment and Plan (1) Hepatitis C infection Current Visit: Yes Status: Acute Code(s): B19.20 - UNSPECIFIED VIRAL HEPATITIS C WITHOUT HEPATIC COMA SNOMED Code(s): 98401959 (2) Elevated liver enzymes Current Visit: Yes Status: Acute Code(s): R74.8 - ABNORMAL LEVELS OF OTHER SERUM ENZYMES SNOMED Code(s): 648695719 Plan: 1patient presented to hospital with abdominal distention and this patient would do have a history of chronic hepatitis C that has been treated more than 7 years ago at [facility] patient subsequently did have blood work and was told that hepatitis C was going however I do not have any access to the blood work which was done by her primary care physician patient now presenting to the hospital abdominal distention concerning for possible cirrhosis and did have elevated her liver enzymes as well as nodularity of the liver with concern for possible primary liver cancer versus metastasis as the patient did have significant elevated alpha-fetoprotein 2we will check hepatitis C RNA which if negative will not need any further work-up 3-patient will benefit from oncology evaluation and possible CT-guided biopsy of the liver nodule to rule out malignancy 4-no evidence of any bacterial infection hence we will hold on systemic antibiotic We will follow on clinical condition and cultures to further adjust medication if needed Thank you for this consultation will follow this patient along with you Time with Patient: Greater than 30
[2021-04-22] MEDS: HEPARIN SODIUM,PORCINE/PF 5,000 UNIT/0.5 ML SYRINGE SQ SCH ×4 (00:16→23:25)
[2021-04-22] MEDS: PANTOPRAZOLE 40 MG TABLET PO SCH (07:12)
[2021-04-22] MEDS: IBUPROFEN 400 MG TAB PO PRN ×2 (07:15→15:07)
--- NOTE | 2021-04-22 10:47 | P.PN ---
Subjective Patient was examined at bedside today not complaining of any new symptomatology. I did personally discuss the case with infectious disease. Patient does have a history of anal cancer that has been in remission. Hematology/oncology has been consulted as the CT scans show unclear determination of nodules. All this has been explained to the patient at bedside and she is agreeable. Denies any worsening symptomatology however does have some abdominal discomfort which is improved compared to admission as well. Objective - Vital Signs Vital signs: Vital Signs Temp 98.4 F 04/22/21 07:00 Pulse 73 04/22/21 07:00 Resp 18 04/22/21 07:00 BP 145/81 04/22/21 07:00 Pulse Ox 95 04/22/21 07:00 Intake & Output 04/21/21 04/22/21 04/22/21 17:59 06:59 18:59 Intake Total Balance Weight Intake: Oral Other: Voiding Method # Voids # Bowel Movements - Exam Gen. patient is awake alert oriented 3. Cardiovascular normal S1/S2 heard Respiratory no wheezing or rhonchi heard Abdomen slightly distended however soft, nontender Extremities no pitting edema noted Psych normal affect Neuro cranial nerves II-12 grossly intact - Labs CBC & Chem 7: 04/21/21 04:35 04/21/21 04:35 Labs: Abnormal Lab Results - Last 24 Hours (Table) 04/21/21 04/21/21 Range/Units 18:10 18:10 C-Reactive Protein 5.40 H (0.00-0.80) mg/dL Procalcitonin 0.52 H (0.02-0.09) ng/mL Assessment and Plan Assessment: Assessment #1 liver cirrhosis secondary to possible hepatitis C - apparently treated per patient. #2 status post hepatitis C treatment #3 ascites secondary to above #4 elevated alpha-fetoprotein #5 history of anal carcinoma in remission Plan: -Admit to medicine for close monitoring -Aspiration/fall precaution -LFTs continue to trend up 366 AST, ALT 76, alk phos 418 alpha-fetoprotein greater than 60,000. -Recommend paracentesis fluid analysis to evaluate etiology for portal hypertension versus other causes - patient refused -I personally reviewed her CMP and LFTs which were completed in 03/2021 which were completely different compared to now. AST was 184 and ALT 39. Records are in the chart please review. -I did review the computed tomography scan answer indeterminant multiple nodules will recommend further evaluation if necessary we'll coordinate with hem/onc -Hepatitis C RNA ordered by ID. -Patient does have a follow-up appointment with GI later this month. Recommend calling them earlier for an appointment. Patient agreeable and will do so. -DVT prophylaxis SCDs heparin 3 times a day
[2021-04-23] MEDS: IBUPROFEN 400 MG TAB PO PRN (02:25)
[2021-04-23 07:52] VITALS: BP 146/82; PULSE 74; RESP 18; TEMP 98.2
[2021-04-23] MEDS: HEPARIN SODIUM,PORCINE/PF 5,000 UNIT/0.5 ML SYRINGE SQ SCH (07:54)
[2021-04-23] MEDS: PANTOPRAZOLE 40 MG TABLET PO SCH (07:54)
--- NOTE | 2021-04-23 14:23 | P.DS ---
Providers Date of admission: 04/22/21 07:54 Expected date of discharge: 04/23/21 Attending physician: Eben Quinonez MD Consults: 04/21/21 09:01 Consult Physician Routine Consulting Provider: Sai Hunt Consult Reason/Comments: multiple interdeterminate nodules seen on CT? Do you want consulting provider notified?: Yes 04/21/21 13:52 Consult Physician Routine Consulting Provider: Poppy Adames Consult Reason/Comments: hep c positive. elevation in LFTs again? recently treated? Do you want consulting provider notified?: Yes Primary care physician: [facility] Course: Assessment #1 liver cirrhosis secondary to possible hepatitis C - apparently treated per patient. #2 status post hepatitis C treatment #3 ascites secondary to above #4 elevated alpha-fetoprotein #5 history of anal carcinoma in remission Plan: -Admitted to medicine for close monitoring. LFTs uptrended with elevated alpha- fetoprotein greater than 60,000. Seen by radiology for consideration of paracentesis, but no pockets deep enough for safe collection. CT S/P showed multiple indeterminant nodules which in combination with elevated AFP is concerning for hepatocellular carcinoma versus metastatic colon carcinoma given history of anal carcinoma not followed up. Heme/Onc saw the patient and recommended outpatient MRI of the liver, and colonoscopy. Pt discharged with instructions to f/u with Heme/Onc for ongoing care. I spent 32 minutes coordinating this complex discharge. Gen: awake, alert HEENT: normocephalic, atraumatic, good hearing acuity, moist mucous membranes Resp: good air exchange, breathing comfortably with no accessory muscle use CVS: good distal perfusion x 4, GI: Distended : no SPT, no CVAT, contreras catheter not present MSK: no pitting edema, no clubbing Neuro: non-focal, moving all extremities Psych: cooperative, euthymic mood Plan - Discharge Summary New Discharge Prescriptions: New Pantoprazole [Protonix] 40 mg PO AC-BRKFST #30 tab Spironolactone 25 mg PO DAILY #30 tablet Ibuprofen [Motrin] 200 mg PO Q6HR PRN tab PRN Reason: MILD Pain Continue Acetaminophen Tab [Tylenol] 1,000 mg PO Q6HR PRN PRN Reason: Pain Discharge Medication List Acetaminophen Tab [Tylenol] 1,000 mg PO Q6HR PRN 04/19/21 [History] Ibuprofen [Motrin] 200 mg PO Q6HR PRN tab 04/23/21 [Rx] Pantoprazole [Protonix] 40 mg PO AC-BRKFST #30 tab 04/23/21 [Rx] Spironolactone 25 mg PO DAILY #30 tablet 04/23/21 [Rx] Follow up Appointment(s)/Referral(s): Jimi Dawson MD [Primary Care Provider] - 1-2 days Chloe Lowe MD [STAFF PHYSICIAN] - 05/21/21 11:00 am Patient Instructions/Handouts: Ascites (DC) Discharge Disposition: HOME SELF-CARE
--- NOTE | 2021-04-23 14:54 | P.PN ---
Subjective Progress Note Date: 04/23/21 Principal diagnosis: ascites, chronic liver disease, Hx Hep C In f/u today pt cont to have abd pain, like a band around the middle of her torso. Denies fever, nausea, bleeding. She is ready for discharge. Objective - Vital Signs Vital signs: Vital Signs Temp 98.2 F 04/23/21 06:58 Pulse 74 04/23/21 06:58 Resp 18 04/23/21 06:58 BP 146/82 04/23/21 06:58 Pulse Ox 92 L 04/23/21 06:58 Intake & Output 04/22/21 04/23/21 04/23/21 18:59 06:59 18:59 Intake Total 200 Balance 200 Intake: Oral 200 Other: Voiding Method Toilet # Voids 3 2 1 - Constitutional General appearance: Present: average body habitus, cooperative, no acute distress - EENT Eyes: Present: anicteric sclerae, EOMI ENT: Present: hearing grossly normal - Respiratory Respiratory: bilateral: CTA - Cardiovascular Rhythm: regular Heart sounds: normal: S1, S2 Abnormal Heart Sounds: Absent: systolic murmur, diastolic murmur, rub, S3 Gallop, S4 Gallop, click, other - Peripheral edema leg Peripheral Edema: bilateral: None - Gastrointestinal General gastrointestinal: Present: distended, soft - Musculoskeletal Musculoskeletal: Present: generalized weakness, strength equal bilaterally - Psychiatric Psychiatric: Present: A&O x's 3, appropriate affect, intact judgment & insight - Labs CBC & Chem 7: 04/21/21 04:35 04/21/21 04:35 Assessment and Plan (1) Elevated AFP Narrative/Plan: AFP>60,500. Discussed with pt and that this finding is highly consistent with primary liver malignancy. There is work up Dr. Chrissy cates completed prior to her visit with him, at which time they will discussed final diagnosis, prognosis and treatment options. She is being discharged today so, will plan and schedule all this. Status: Acute Priority: High Code(s): R77.2 - ABNORMALITY OF ALPHAFETOPROTE IN SNOMED Code(s): 812290134 (2) Ascites of liver Narrative/Plan: Not enough fluid for para on evaluation Status: Acute Code(s): R18.8 - OTHER ASCITES SNOMED Code(s): 769582803 (3) Elevated liver enzymes Status: Acute Code(s): R74.8 - ABNORMAL LEVELS OF OTHER SERUM ENZYMES SNOMED Code(s): 574325965 (4) Hepatitis C infection Narrative/Plan: Hx of, treated for in the past Status: Acute Code(s): B19.20 - UNSPECIFIED VIRAL HEPATITIS C WITHOUT HEPATIC COMA SNOMED Code(s): 17208368 Plan: ok for discharge. Will contact pt with appt dates and times. >35 spent counseling and coordinating care Time with Patient: Greater than 30
== END 2021-04-23 10:57 | disposition home or self-care (01) | DRG 392 ==
LOC: EC 15:15 → 6NMEDSUR 18:07 → 4SSUR 21:06 → OBSVTOIN 04-22 07:54
PROVIDERS: ADMIT Internal Medicine; ATTEND Internal Medicine
DX: R10.9 Unspecified abdominal pain (principal); R18.8 Other ascites; K74.60 Unspecified cirrhosis of liver; B18.2 Chronic viral hepatitis C; R74.8 Abnormal levels of other serum enzymes; K04.7 Periapical abscess without sinus; R16.0 Hepatomegaly, not elsewhere classified; K64.9 Unspecified hemorrhoids; Z53.29 Procedure and treatment not carried out because of patient's decision for other reasons; Z80.49 Family history of malignant neoplasm of other genital organs; Z82.0 Family history of epilepsy and other diseases of the nervous system; Z85.048 Personal history of other malignant neoplasm of rectum, rectosigmoid junction, and anus; Z87.891 Personal history of nicotine dependence; Z88.2 Allergy status to sulfonamides; Z88.5 Allergy status to narcotic agent; Z85.828 Personal history of other malignant neoplasm of skin; Z90.49 Acquired absence of other specified parts of digestive tract; Z98.51 Tubal ligation status
CPT/HCPCS: 36415; 74176; 76705; 80053; 80074; 82105; 82248; 84145; 85025; 85027; 85610; 85730; 86140; 87522; 99285

== ENCOUNTER 2021-05-22 07:52 | Day surgery (SDC) | payer BC ==
[2021-05-22 08:27] LABS: Mean Platelet Volume 8.6; Platelet Count 406 k/uL (150-450)
[2021-05-22 08:45] VITALS: TEMP 97
[2021-05-22 08:46] LABS: INR 1.3 (<1.2); Prothrombin Time 13.4 sec (9.0-12.0)
[2021-05-22 09:44] VITALS: RESP 16
[2021-05-22 10:06] VITALS: BP 92/54; PULSE 80
--- NOTE | 2021-05-22 10:06 | US ---
Ultrasound-guided paracentesis. DATE OF EXAM: 05/22/2021 CLINICAL HISTORY: Ascites The procedure was discussed with the patient. The risks, complications, benefits, and alternatives we re discussed and any questions were answered. Informed consent was obtained. The patient was placed s upine on the ultrasound table and prepped and draped in the usual sterile fashion. All elements of maximal barrier technique were utilized. Under ultrasound guidance, access into the left lower quadrant was obtained, via the paracentesis catheter system and direct ultrasound guidance . Approximately 2.7 liters of straw-colored fluid was removed. The patient was stable throughout the pr ocedure and remained stable upon discharge from Department of Radiology. IMPRESSION: Successful paracentesis under ultrasound guidance.
== END 2021-05-22 10:06 | disposition home or self-care (01) ==
LOC: RADPROMAIN 07:52
PROVIDERS: ATTEND Internal Medicine Hematology & Oncology
DX: C22.0 Liver cell carcinoma (principal)
CPT/HCPCS: 36415; 49083; 85049; 85610